=== PATIENT | female | born 1955 | race Caucasian/White ===

== ENCOUNTER 2017-02-19 13:24 | Emergency (ER) | payer MEDICAID, SELFPAY | END 2017-02-19 14:45 | disposition home or self-care (01) | PROVIDERS: Emergency Provider Nurse Practitioner Family; Family Provider Family Medicine; Visit Provider Nurse Practitioner Family | DX: J06.9 Acute upper respiratory infection, unspecified (principal); R05 Cough; I10 Essential (primary) hypertension; E11.9 Type 2 diabetes mellitus without complications; F17.210 Nicotine dependence, cigarettes, uncomplicated; Z79.4 Long term (current) use of insulin; Z79.899 Other long term (current) drug therapy | CPT/HCPCS: 87804; 87880; 99201 ==

== ENCOUNTER → 2020-05-23 07:57 | Outpatient (CLI) | payer MEDICAID, SELFPAY ==
--- NOTE | 2020-05-23 08:06 | US_ITS ---
PROCEDURE: US ABD. AORTA SCREENING CLINICAL INDICATION: AAA COMPARISON: No exams were available for comparison FINDINGS: No evidence of abdominal aortic aneurysm. Proximal common iliacs have an unremarkable appearance. IMPRESSION: Negative for abdominal aortic aneurysm Dictated by: Buzz Petit MD 05/23/2020 10:03 Buzz Petit MD in [place] 05/23/2020 10:03
--- NOTE | 2020-05-23 08:07 | MM_ITS ---
PROCEDURE: MM DIG SCREENING MAMM BI W/CAD Digital Breast Tomosynthesis Included CLINICAL INDICATION: SCREENING COMPARISON: MG MAMMOGRAM DIAGNOSTIC BILATERAL from 04/16/2002 MG MM SCREENING MAMMOGRAM from 09/29/2010 MG MM SCREENING MAMMOGRAM from 09/26/2011 TECHNIQUE: Standard CC and MLO images and 3D Tomosynthesis was obtained. R2 CAD reviewed. FINDINGS: The breasts are composed of scattered fibroglandular tissues. Left axillary lymph nodes are noted, unchanged. No evidence of dominant mass lesions, suspicious calcification or architectural distortion. IMPRESSION: No suspicious findings or mass lesions. BI-RAD Category: 2 Benign Finding(s) FOLLOW-UP: 1YR 1 Year Follow-up (A letter has been sent to the patient regarding results of the study.) Dictated by: Siobhan Arguello 06/01/2020 10:04 Siobhan Arguello in [place] 06/01/2020 10:04
--- NOTE | 2020-05-23 08:32 | US_ITS ---
PROCEDURE: US ABDOMEN COMPLETE CLINICAL INDICATION: RUQ PAIN Right upper quadrant pain with nausea and vomiting COMPARISON: US US ABD. AORTA SCREENING from 05/23/2020 FINDINGS: PANCREAS: Unremarkable. No obvious mass or abnormal fluid collection. No ductal dilatation LIVER: No focal liver lesions demonstrated. Homogeneous echogenicity. No intrahepatic biliary ductal dilatation evident. There is appropriate direction of blood flow within a non dilated portal vein RIGHT KIDNEY: Unremarkable. Normal size and echogenicity. No hydronephrosis LEFT KIDNEY: Unremarkable. Normal size and echogenicity. No hydronephrosis GALLBLADDER: No gallstones, gallbladder wall thickening, pericholecystic fluid, or biliary dilatation. AORTA: No evidence of aneurysmal dilatation. SPLEEN: Unremarkable. Normal size and echogenicity ASCITES: None demonstrated. IMPRESSION: No acute findings Dictated by: Buzz Petit MD 05/23/2020 10:02 Buzz Petit MD in [place] 05/23/2020 10:02
== END ==
PROVIDERS: PCP Nurse Practitioner Family; Visit Provider Nurse Practitioner Family
DX: R10.11 Right upper quadrant pain (principal); Z13.6 Encounter for screening for cardiovascular disorders; Z12.31 Encounter for screening mammogram for malignant neoplasm of breast
CPT/HCPCS: 76700; 76705; 77063; 77067

== ENCOUNTER → 2020-06-20 15:51 | Outpatient (CLI) | payer MEDICAID, SELFPAY ==
[2020-06-20 17:16] LABS: Coronavirus 19 IgG Antibody Negative (Negative); Coronavirus 19 IgM Antibody Negative (Negative)
== END ==
PROVIDERS: Visit Provider Surgery
DX: Z01.812 Encounter for preprocedural laboratory examination (principal); Z20.822 Contact with and (suspected) exposure to COVID-19; Z12.11 Encounter for screening for malignant neoplasm of colon
CPT/HCPCS: 36415; 86328

== ENCOUNTER 2020-06-22 06:49 | Day surgery (SDC) | payer MEDICAID, SELFPAY ==
[2020-06-20 15:41] VITALS: BMI 30.8
[2020-06-22 07:10] VITALS: BP 183/70; PULSE 115; RESP 22; TEMP 36.6; O2SAT 96
[2020-06-22 07:33] VITALS: O2SAT 96
[2020-06-22 08:31] VITALS: BP 113/83; PULSE 98; RESP 18; TEMP 36.9; O2SAT 93
--- NOTE | 2020-06-22 08:34 | P.PCN_ITS ---
- Procedure: Date: 06/22/20 Patient Date of :: 1955 Procedure Performed:: Flexible sigmoidoscopy with polypectomy using hot snare Indications:: Patient is a 65-year-old female referred for colonoscopy by Rick Juarez. She resides in [facility]. She does state that she has undergone 3 or 4 colonoscopies in the past for evaluation of GI symptoms. She is been diagnosed with IBS. Her last colonoscopy however was greater than 20 years ago. She does state that she had some problems with IBS type symptoms after hysterectomy performed in 1990 which have been attributed to adhesions. She also describes a bleeding hemorrhoid for 3 years. She states that this is improved when she takes Metamucil. She underwent Cologuard testing which is positive. She was referred for surgical consultation for colonoscopy. Performing Provider:: Prabhu Cortez MD Referring Provider:: Rick Juarez Sedation:: MAC sedation Procedure:: Patient was taken to endoscopy procedure room. She was positioned in lateral decubitus position. Adequate intravenous sedation was achieved with anesthesia titration of propofol. Digital examination was performed which was unremarkable. She did have some minimal external hemorrhoids. Variable stiffness Olympus colonoscope was inserted via the anus. There was some solid stool encountered within the rectum but this was able to be traversed. Colonoscope was advanced to approximately 25 cm. There was severe angulation at this point and significant diverticulosis. Multiple attempts using various t echnique including different positioning of the patient as well as changing the colonoscope to an endoscope were used in attempt to advance the colonoscope beyond this point. After approximately 50 minutes of work the endoscope was unable to be advanced beyond 25 cm. Therefore attempted full colonoscopy was aborted. There was noted to be a very large pedunculated polyp at approximately 17 cm at the rectosigmoid region. This was removed in its entirety using hot snare. This measured about 2 cm. It had generous stalk. There was question of some residual adenomatous component at the stalk and additional stalk was removed using hot snare. Colonoscope was withdrawn. Findings:: Severe angulation and diverticulosis at 25 cm from the anal verge at which point colonoscope could not be advanced Very large pedunculated rectosigmoid polyp at approximately 17 cm removed with hot snare with removal of portion of the stalk. Recommendations:: Follow-up on histopathology. She will need completion colonoscopy. I will see if gastroenterology may be able to help. Complications:: None immediately apparent Estimated blood obtained (mL): 2
[2020-06-22 08:41] VITALS: BP 116/62; PULSE 97; RESP 16; TEMP 36.9; O2SAT 97
[2020-06-22 08:51] VITALS: BP 132/67; PULSE 97; RESP 16; TEMP 36.9; O2SAT 97
--- NOTE | 2020-06-22 08:56 | HMH.ANESCL ---
[facility] Anesthesia Checklist - Patient Identification Patient Identification: Arm Band - Structural Data Admitted From: Home Planned Operative Procedure/s: colonoscopy Consent for Planned Operative Procedure(s) Verified: Yes Verified Documents: Surgical Consent, History and Physical - NPO Status Verified Time NPO: 00:00 - Additional verifications Anesthesia Reactions: No - Airway Assessment C-Spine Mobility Assessed: Yes (mp2) TMJ Mobility Assessed: Yes Dentition: Edentulous - Neurological Assessment Level of Consciousness: Awake, Alert - Anesthesia Plan Anesthesia Risk discussed: Yes Anesthesia Plan: Verified ASA Class: III Anesthesia Type: MAC [facility] History I have reviewed the patient's past medical history: Yes Medical History: Reports:: Asthma, Diabetes Mellitus Type 2, Hypertension Denies:: Cancer, Internal Pacemaker, MRSA, Seizures *Have you ever received a pneumonia vaccine?: No *Have you received a flu vaccine this season?: No Anesthesia experience/problems:: nac Other Surgeries: Yes: Colonoscopy. No: Pacemaker Amputation: No - *Social History Last grade of school completed: High school graduate Smoking Status: Never smoker Alcohol Intake: never Substance Use Type: denies use *Occupational Status:: other Housing: house *Travel in the last 8 weeks: None Family Hx:: No significant family history
[2020-06-22 09:01] VITALS: BP 113/79; PULSE 90; RESP 16; TEMP 36.9; O2SAT 98
[2020-06-22 17:04] LABS: POC Glucose,Bedside 297 (70-110)
== END 2020-06-22 09:04 | disposition home or self-care (01) ==
PROVIDERS: PCP Nurse Practitioner Family; Visit Provider Surgery
PROC: 0DJD8ZZ Inspection of Lower Intestinal Tract, Via Natural or Artificial Opening Endoscopic (ICD-10-PCS; CPT 45330; principal; 2020-06-22 07:30)
DX: K56.2 Volvulus (principal); K57.90 Diverticulosis of intestine, part unspecified, without perforation or abscess without bleeding; K63.5 Polyp of colon; J45.909 Unspecified asthma, uncomplicated; E11.9 Type 2 diabetes mellitus without complications; I10 Essential (primary) hypertension; Z91.041 Radiographic dye allergy status; Z79.84 Long term (current) use of oral hypoglycemic drugs; Z79.899 Other long term (current) drug therapy
CPT/HCPCS: 45385; 82962

== ENCOUNTER → 2021-08-15 08:14 | Outpatient (CLI) | payer MEDICARE, MEDICAID, SELFPAY ==
--- NOTE | 2021-08-15 08:20 | MM_ITS ---
PROCEDURE INFORMATION: Exam: MG Bilateral Screening 3D Mammography Exam date and time: 08/15/2021 8:29 AM Age: 66 years old Clinical indication: Screening examination TECHNIQUE: Imaging protocol: Bilateral Screening tomosynthesis and 2D mammography including computer-aided detection (CAD) when performed. COMPARISON: MG MM DIG SCREENING MAMM BI W/CAD 05/23/2020 8:05 AM FINDINGS: MAMMOGRAPHY: Breast composition: The breasts are almost entirely fatty. Mass: None. Architectural distortion: None. Calcifications: No suspicious calcifications. Asymmetric density: None. Skin thickening: None. Axillary adenopathy: None. IMPRESSION: No mammographic evidence of malignancy. Annual screening is recommended unless otherwise clinically indicated. ASSESSMENT: BI-RADS Category 1: Negative
--- NOTE | 2021-08-15 08:23 | US_ITS ---
FINAL REPORT CLINICAL HISTORY: RT UPPER QUAD. PAIN FINDINGS: Sonographic images of the right upper quadrant were obtained. The pancreas is partially obscured.The liver has an unremarkable appearance. There is a small amount of sludge within the gallbladder without evidence of gallstones. There is no evidence of biliary ductal dilatation.The common duct measures 5 mm. The right kidney measures 10.1 cm in length and is unremarkable. IMPRESSION: Small amount of sludge within the gallbladder without evidence of gallstones. Reviewed, Interpreted and Dictated by Prabhu Venegas III, MD Transcribed by Lizbeth Cochran Authenticated and . [facility]
--- NOTE | 2021-08-15 09:00 | XR_ITS ---
FINAL REPORT TECHNIQUE: Bone mineral density was calculated of the lumbar spine and hip. CLINICAL HISTORY: . post menopausal FINDINGS: DEXA BONE DENSITY AXIAL SKELETON Using L1-4, the bone mineral density of the spine is 0.821 g/cm2, corresponding to T-score of -2.1. Using the right hip, the bone mineral density of the femoral neck is 0.590 g/cm2, corresponding to a T-score of -2.3. NOTE: T-score: Standard deviation compared with peak bone mass of young adult mean. *Following the recommendations of the International Society of Bone densitometry, classification of hip BMD is based on the lower of two T-scores; total hip or femoral neck. IMPRESSION: Diminished bone mineral density of the lumbar spine and right hip consistent with osteopenia. FRAX 10 year fracture risk is 12 % for major osteoporotic fracture. Reviewed, Interpreted and Dictated by Prabhu Venegas III, MD Transcribed by Lizbeth Cochran Authenticated and [facility]
== END ==
PROVIDERS: PCP Nurse Practitioner Family; Visit Provider Nurse Practitioner Family
DX: Z12.31 Encounter for screening mammogram for malignant neoplasm of breast (principal); Z13.820 Encounter for screening for osteoporosis; Z78.0 Asymptomatic menopausal state; R10.11 Right upper quadrant pain
CPT/HCPCS: 76705; 77063; 77067; 77080

== ENCOUNTER → 2021-09-08 09:59 | Outpatient (CLI) | payer MEDICARE, MEDICAID, SELFPAY ==
--- NOTE | 2021-09-08 10:10 | NM_ITS ---
FINAL REPORT CLINICAL HISTORY: DISORDER OF GALLBLADDER 11:00 am 8.01 [facility]ci tc choltec 1.4 mcg of cck FINDINGS: Sequential anterior projection images of the abdomen were obtained after the intravenous injection of 8.01 mCi technetium 99m Choletec. There is normal uptake of radiotracer by the liver. The bile ducts and gallbladder activity is seen by 15 minutes. Bowel activity is normal. After 1 hour, 1.4 ?g of CCK was injected intravenously for calculation of gallbladder ejection fraction. The gallbladder ejection fraction is 18%, which is which is low. IMPRESSION: No evidence of cystic duct or bile duct obstruction. Low gallbladder ejection fraction of 18%. Reviewed, Interpreted and Dictated by Audra Porter MD Transcribed by Lorna Carlos Authenticated and [facility]
== END ==
PROVIDERS: PCP Nurse Practitioner Family; Visit Provider Nurse Practitioner Family
DX: K82.8 Other specified diseases of gallbladder (principal)
CPT/HCPCS: 78227; A9537; J2805